=== PATIENT | male | born 1985 | race Caucasian/White ===

== ENCOUNTER 2017-02-01 12:20 | Emergency (ER) | payer OTHER ==
[2017-02-01 12:46] VITALS: BP 132/69
--- NOTE | 2017-02-01 13:05 | ER Document Report ---
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 He states he did have on eye protection but did not have on the [id number] when he was grinding metal yesterday. He did feel some foreign body getting underneath his eye protection. He said he saw a metal foreign body last night and had irrigated the eye. TRAVEL OUTSIDE OF THE [place] IN LAST 30 DAYS: No - Related Data Allergies/Adverse Reactions: No Known Allergies Allergy (Verified 01/14/15 20:57) Past Medical History - Social History Chew tobacco use (# tins/day): No Frequency of alcohol use: Rare Drug Abuse: None Neurological Medical History: Reports: Hx Migraine Renal/ Medical History: Denies: Hx Peritoneal Dialysis Psychiatric Medical History: Reports: Hx Depression, Hx Post Traumatic Stress Disorder Traumatic Medical History: Reports: Hx Traumatic Brain Injury - Immunizations Immunizations up to date: Yes Hx Diphtheria, Pertussis, Tetanus Vaccination: Yes - unknown date Physical Exam - Vital signs Vitals: Temp Pulse Resp BP Pulse Ox 97.9 F 71 16 132/69 H 98 02/01/17 12:45 02/01/17 12:45 02/01/17 12:45 02/01/17 12:45 02/01/17 12:45 Course - Vital Signs Vital signs: Temp Pulse Resp BP Pulse Ox 97.9 F 71 16 132/69 H 98 02/01/17 12:45 02/01/17 12:45 02/01/17 12:45 02/01/17 12:45 02/01/17 12:45
[2017-02-01] MEDS ORDERED: TETRACAINE HCL 0.5% OPH SOLN 2 ML OD ONE (13:50)
--- NOTE | 2017-02-01 14:50 | ER Document Report ---
HPI - HPI Patient complains to provider of: Right eye irritation Onset: Yesterday Onset/Duration: Sudden Pain Level: 3 Context: 32-year-old male was grinding metal yesterday with safety glasses on. He got a piece of metal into his right eye at the edge of the pupil at about 9:00. Used to Q-tips and tweezers to get the piece of metal out. Feels irritated today. He also has some left eye irritation. Associated Symptoms: None Exacerbated by: Denies Relieved by: Denies Similar symptoms previously: Yes Recently seen / treated by doctor: No - ROS ROS below otherwise negative: Yes Systems Reviewed and Negative: Yes All other systems reviewed and negative - DERM Skin Color: Normal Past Medical History - General Information source: Patient - Social History Smoking Status: Current Every Day Smoker Chew tobacco use (# tins/day): No Frequency of alcohol use: Rare Drug Abuse: None Lives with: Family Family History: Reviewed & Not Pertinent Patient has suicidal ideation: No Patient has homicidal ideation: No Neurological Medical History: Reports: Hx Migraine Renal/ Medical History: Denies: Hx Peritoneal Dialysis Psychiatric Medical History: Reports: Hx Depression, Hx Post Traumatic Stress Disorder Traumatic Medical History: Reports: Hx Traumatic Brain Injury Surgical Hx: Negative - Immunizations Immunizations up to date: Yes Hx Diphtheria, Pertussis, Tetanus Vaccination: Yes - unknown date Vertical Provider Document - CONSTITUTIONAL Agree With Documented VS: Yes Exam Limitations: No Limitations General Appearance: No Apparent Distress - INFECTION CONTROL TRAVEL OUTSIDE OF THE [place] IN LAST 30 DAYS: No - HEENT HEENT: Normocephalic, PERRLA Notes: Left eye no foreign body, no conjunctival injection, no fluorescein uptake. Right eye Right eye no foreign body although there is a rust colored trainee.at 9:00 at the limbic border, no foreign body, no fluorescein uptake, no conjunctival injection. - NECK Neck: Supple - RESPIRATORY O2 Sat by Pulse Oximetry: 98 - NEURO Level of Consciousness: Awake, Alert, Appropriate - DERM Integumentary: Warm, Dry Course - Vital Signs Vital signs: Temp Pulse Resp BP Pulse Ox 97.9 F 71 16 132/69 H 98 02/01/17 12:45 02/01/17 12:45 02/01/17 12:45 02/01/17 12:45 02/01/17 12:45 Discharge - Discharge Clinical Impression: left eye irritation, nose pimple Corneal rust ring Qualifiers: Laterality: right Qualified Code(s): H18.891 - Other specified disorders of cornea, right eye Condition: Good Disposition: HOME, SELF-CARE Instructions: Eyedrop Use ([facility]), Bactroban Ointment ([facility]), Sulfa Medications ( [facility]) Additional Instructions: [facility] tomorrow to get the rust ring removed to er any concerns polytrim eye drop 1 drop both eyes four times per day bactroban to nose pimple 3 times per day Please complete the patient satisfaction survey if you get one, and return it.. If you do not receive a survey, then you can go to the [facility] website, [email or web address] and place your comments about your very good care. Thank you very much. It was a pleasure being your medical provider today. Prescriptions: Mupirocin [Bactroban 2% Ointment 22 gm] 1 applic TP TID #22 gm Forms: Return to Work Referrals: JUAN MANUEL JOHNSON MD [ACTIVE STAFF] - Follow up tomorrow
[2017-02-01] MEDS ORDERED: POLYMYXIN B SULFATE/TMP OPH SOLN 10 ML OU SCH ×2 (15:00)
== END 2017-02-01 15:02 | disposition home or self-care (01) ==
LOC: ER 12:20
DX: H18.891 Other specified disorders of cornea, right eye (principal); H57.11 Ocular pain, right eye; R23.8 Other skin changes; F17.200 Nicotine dependence, unspecified, uncomplicated; X58.XXXA Exposure to other specified factors, initial encounter
CPT/HCPCS: 99283; J3490